=== PATIENT | female | born 1980 | race Caucasian/White ===

== ENCOUNTER 2018-08-17 07:30 | Inpatient (IN) | payer OTHER ==
[2018-08-21] MEDS ORDERED: Acetaminophen 1,000 MG in Premix Bag 1 BAG IV ONE (00:49)
[2018-08-21] MEDS ORDERED: Sodium Chloride 0.9% 2.5 ML Syringe FLUSH PRN (05:32)
[2018-08-21] MEDS ORDERED: Sodium Chloride 0.9% 10 ML SDV IV PRN (05:32)
[2018-08-21] MEDS ORDERED: Sodium Chloride 0.9% 10 ML Syringe FLUSH PRN (05:32)
[2018-08-21] MEDS ORDERED: Oxytocin/0.9 % Sodium Chloride 30 UNIT/500 ML BAG IV SCH (05:45)
[2018-08-21] MEDS ORDERED: ceFAZolin 2 GM in Premix Bag 1 BAG IV ONE (06:00)
[2018-08-21] MEDS ORDERED: Citric Acid/Sodium Citrate Solution 30 ML Cup PO ONE (06:00)
[2018-08-21] MEDS: Lactated Ringers 1,000 ML IV SCH ×2 (06:08→07:31)
[2018-08-21] MEDS ORDERED: Phenylephrine 1% 10 MG/ML SDV ONE (06:49)
[2018-08-21] MEDS ORDERED: Ondansetron 4 MG/2 ML SDV ONE (06:50)
[2018-08-21] MEDS ORDERED: Morphine PF 10 MG/10 ML SDV ONE (07:26)
[2018-08-21] MEDS ORDERED: Octyl 2-Cyanoacrylate 1 Tube ONE (07:26)
[2018-08-21] MEDS ORDERED: Oxytocin 10 Units/1 ML SDV ONE (07:27)
[2018-08-21] MEDS ORDERED: ceFAZolin/Dextrose,Iso-Osmotic 2 GM/50 ML Duplex Bag IV ONE (07:31)
--- NOTE | 2018-08-21 07:31 | PCM.PREANE ---
Preanesthetic Assessment - Anesthesia/Transfusion/Family Hx Anesthesia History: Prior Anesthesia Without Reaction (get for prior 13 years ago) Family History of Anesthesia Reaction: No Transfusion History: No Prior Transfusion(s) - Review of Systems General: No Symptoms Pulmonary: No Symptoms (nasal congestion) Cardiovascular: No Symptoms Gastrointestinal: No Symptoms Neurological: No Symptoms Other: Reports: None - Physical Assessment NPO Status Date: 08/20/18 Height: 5 ft 5 in Weight: 104.326 kg ASA Class: 2 Mental Status: Alert & Oriented x3 Airway Class: Mallampati = 2 Dentition: Reports: Normal Dentition ROM/Head Extension: Full Lungs: Clear to Auscultation, Normal Respiratory Effort Cardiovascular: Regular Rate, Regular Rhythm - Lab Values: Laboratory Last Values WBC 9.62 K/uL (4.0-11.0) 08/21/18 05:48 RBC 4.53 M/uL (4.30-5.90) 08/21/18 05:48 Hgb 13.1 g/dL (12.0-16.0) 08/21/18 05:48 Hct 38.6 % (36.0-46.0) 08/21/18 05:48 MCV 85.2 fL (80.0-98.0) 08/21/18 05:48 MCH 28.9 pg (27.0-32.0) 08/21/18 05:48 MCHC 33.9 g/dL (31.0-37.0) 08/21/18 05:48 RDW Std Deviation 44.6 fl (28.0-62.0) 08/21/18 05:48 RDW Coeff of Félix 15 % (11.0-15.0) 08/21/18 05:48 Plt Count 230 K/uL (150-400) 08/21/18 05:48 MPV 9.20 fL (7.40-12.00) 08/21/18 05:48 Nucleated RBC % 0.0 /100WBC 08/21/18 05:48 Nucleated RBCs # 0 K/uL 08/21/18 05:48 Blood Type O POSITIVE 08/21/18 05:48 Antibody Screen NEGATIVE 08/21/18 05:48 - Allergies Allergies/Adverse Reactions: Allergies Allergy/AdvReac Type Severity Reaction Status Date / Time codeine Allergy throat Verified 08/16/18 11:09 swells/hives hydrocodone Allergy throat Verified 08/16/18 11:09 swells/ hives - Blood Blood Available: No - Anesthesia Plan Pre-Op Medication Ordered: None - Acknowledgements Anesthesia Type Planned: Spinal Pt an Appropriate Candidate for the Planned Anesthesia: Yes Alternatives and Risks of Anesthesia Discussed w Pt/Guardian: Yes Pt/Guardian Understands and Agrees with Anesthesia Plan: Yes Additional Comments: PMH: repeat elective c section, 39 weeks, no gestational problems, meds-- vistaril and celexa PLAN:spinal with duramorph PreAnesthesia Questionnaire HEENT History: Reports: Other (See Below) Other HEENT History: wears glasses/contacts Cardiovascular History: Reports: None Respiratory History: Reports: None Gastrointestinal History: Reports: Other (See Below) Other Gastrointestinal History: heartburn during Genitourinary History: Reports: None PERIPATOLOGIST History: Reports: Musculoskeletal History: Reports: None Neurological History: Reports: None Psychiatric History: Reports: Anxiety, Depression Endocrine/Metabolic History: Reports: Obesity/BMI 30+ Hematologic History: Reports: None Immunologic History: Reports: None Oncologic (Cancer) History: Reports: None Dermatologic History: Reports: None - Infectious Disease History Infectious Disease History: Reports: Chicken Pox Other Infectious Disease History: chicken pox as a child - Past Surgical History Head Surgeries/Procedures: Reports: None HEENT Surgical History: Reports: None Cardiovascular Surgical History: Reports: None Respiratory Surgical History: Reports: None GI Surgical History: Reports: None Female Surgical History: Reports: Section Endocrine Surgical History: Reports: None Neurological Surgical History: Reports: None Musculoskeletal Surgical History: Reports: Carpal Tunnel Oncologic Surgical History: Reports: None Dermatological Surgical History: Reports: None - SUBSTANCE USE Smoking Status *Q: Former Smoker Tobacco Use Within Last Twelve Months: No Second Hand Smoke Exposure: No Recreational Drug Use History: No - HOME MEDS Home Medications: Home Meds Citalopram Hydrobromide [Celexa] 10 mg PO DAILY 08/16/18 [History] PNV95/Ferrous Fumarate/FA [ Vitamin Tablet] 1 tab PO DAILY 08/16/18 [ History] hydrOXYzine pamoate [Hydroxyzine Pamoate] 50 mg PO BEDTIME 08/16/18 [History] - CURRENT (IN HOUSE) MEDS Current Meds: Current Medications Lactated Ringer's (Ringers, Lactated) 1,000 mls @ 500 mls/hr IV BOLUS MIGUEL Last Admin: 08/21/18 06:08 Dose: 500 mls/hr Oxytocin/Sodium Chloride (Oxytocin 30 Unit/500 Ml-Ns) 30 unit in 500 mls @ 250 mls/hr IV TITRATE MIGUEL Sodium Chloride (Saline Flush) 10 ml FLUSH ASDIRECTED PRN PRN Reason: Keep Vein Open Sodium Chloride (Saline Flush) 2.5 ml FLUSH ASDIRECTED PRN PRN Reason: Keep Vein Open Sodium Chloride (Normal Saline) 10 ml IV ASDIRECTED PRN PRN Reason: IV Use Discontinued Medications Citric Acid/Sodium Citrate (Bicitra Solution) 30 ml PO ONETIME ONE Stop: 08/21/18 06:01 Acetaminophen 1,000 mg/ Premix 100 mls @ 400 mls/hr IV NOW ONE Stop: 08/21/18 00:51 Cefazolin Sodium/Dextrose 2 gm (/ Premix) 50 mls @ 100 mls/hr IV ONETIME ONE Stop: 08/21/18 06:29 Ondansetron HCl (Zofran) Confirm Administered Dose 4 mg .ROUTE .STK-MED ONE Stop: 08/21/18 06:51 Phenylephrine HCl (Eduardo-Synephrine) Confirm Administered Dose 10 mg .ROUTE .STK- MED ONE Stop: 08/21/18 06:50
--- NOTE | 2018-08-21 08:53 | PCM.OPNOTE ---
- General Post-Op/Procedure Note Date of Surgery/Procedure: 08/21/18 Operative Procedure(s): repeat low transverse Findings: Liveborn female 8/9 weight 3920 grams, normal pelvis Pre Op Diagnosis: 39 weeks prior , declines trial of labor. Post-Op Diagnosis: Same Anesthesia Technique: Spinal Primary Surgeon: Tania Jenkins Anesthesia Provider: Tony Barnes Manager Human Capital: Roxy Love Pathology: none Fluid Replacement, Intraop: 2,300 Output, Urine Amount: 75 EBL in mLs: 500 Complications: None Known Condition: Good
[2018-08-21] MEDS ORDERED: Lanolin 100% Cream 7 GM Tube TOP PRN (08:54)
[2018-08-21] MEDS ORDERED: diphenhydrAMINE 50 MG/ML SDV IVPUSH PRN (08:54)
[2018-08-21] MEDS ORDERED: Ondansetron 4 MG/2 ML SDV IVPUSH PRN (08:54)
[2018-08-21] MEDS ORDERED: Acetaminophen/oxyCODONE 325-5 MG Tab PO PRN (08:54)
[2018-08-21] MEDS ORDERED: Bisacodyl 10 MG Supp RECTAL PRN (08:54)
[2018-08-21] MEDS: Docusate Sodium 100 MG Cap PO SCH ×2 (09:00→20:46)
[2018-08-21] MEDS: Citalopram 20 MG Tab PO SCH (09:00)
[2018-08-21] MEDS ORDERED: Lactated Ringers 1,000 ML IV SCH (09:00)
[2018-08-21] MEDS: Ketorolac 30 MG/ML SDV IVPUSH SCH ×3 (09:16→20:46)
--- NOTE | 2018-08-21 09:43 | PCM.POSTAN ---
POST ANESTHESIA ASSESSMENT - MENTAL STATUS Mental Status: Alert, Oriented - RESPIRATORY Respiratory Status: Respiratory Rate WNL, Airway Patent, O2 Saturation Stable - CARDIOVASCULAR CV Status: Pulse Rate WNL, Blood Pressure Stable - GASTROINTESTINAL GI Status: No Symptoms - POST OP HYDRATION Hydration Status: Adequate & Stable
--- NOTE | 2018-08-21 12:22 | OR ---
SURGEON: Tania Jenkins M.D. DATE OF PROCEDURE: 08/21/2018 PREOPERATIVE DIAGNOSES: A 39-week intrauterine , prior delivery, declines vaginal trial of labor, polyhydramnios. POSTOPERATIVE DIAGNOSES: A 39-week intrauterine , prior delivery, declines vaginal trial of labor, polyhydramnios. PROCEDURE: Repeat low-transverse section. ANESTHESIA: Spinal. ESTIMATED BLOOD LOSS: 500 mL. FLUIDS: 2300 mL of crystalloid. URINE OUTPUT: 75 mL. FINDINGS: Liveborn female, score of 8 and 9, weighing 3920 g. Normal-appearing uterus, tubes, and ovaries. COMPLICATIONS: None known. DISPOSITION: Stable to recovery. BRIEF HISTORY: This is a 38-year-old female. She is G2, P 1-0-0-1. She presents at 39 weeks' gestation for repeat with risks discussed including bleeding; infection; injury to bowel, bladder, blood vessels, or other organs; risk of thromboembolic event; and risk of anesthesia. Understanding these risks, she does desire to proceed. Her care was complicated by polyhydramnios with negative evaluation. DESCRIPTION OF PROCEDURE: With the patient in left tilt position, under adequate spinal analgesia, the abdomen was prepped with chlorhexidine and draped in the usual fashion for abdominal surgery. SCDs were in place. Ray catheter had been placed. She received 2 g of Ancef IV, and after an appropriate time-out was obtained, the documentation of adequate analgesia was performed. A transverse curvilinear incision was made over the prior incision and carried through the subcutaneous tissue to the fascia, which was scored transversely in the midline. The fascial incision was extended laterally using curved Massey scissors. Fascia was elevated from the underlying rectus muscle using sharp and blunt dissection. The rectus muscles were sharply in the midline. The peritoneum was entered sharply. A finger was placed into the peritoneal cavity. There was a small amount of omental adhesion to the left of the incision site. Otherwise, no adhesion to the anterior abdominal wall. The incision was extended using sharp and blunt dissection. The Jigar O retractor was placed. The visceroperitoneum over the lower uterine segment was incised to develop an adequate bladder flap. A transverse curvilinear incision was made with a scalpel over the lower uterine segment to the amniotic membrane. The incision was extended using blunt dissection. The amniotic membranes were then ruptured. The head was delivered via the uterine incision with fundal pressure with subsequent delivery of the infant's shoulders and body without any difficulty. The infant was bulb suctioned by nose and mouth, and after the cord had ceased to pulsate, it was doubly clamped and cut. The infant was a liveborn female, score of 8 and 9, weighing 3920 g. Cord blood was collected for cord ABGs as well as routine cord blood sampling. The placenta was removed by manual extraction. The uterus was cleaned with a dry laparotomy tape. The cervix was opened with ring forceps. The uterine incision was closed with a running lock suture of 0 Polysorb followed by an imbricating layer of 0 Polysorb. Posterior cul-de-sac, pericolic gutters were cleaned with a wet laparotomy tape. Tubes and ovaries were inspected and were hemostatic. The uterine incision was inspected and was hemostatic, therefore, the Jigar O retractor was removed. A final inspection was performed and hemostasis was confirmed. The rectus muscle and peritoneum were loosely approximated in midline using a running mattress suture of 0 Polysorb. The posterior aspect of the fascia was inspected, any areas of bleeding that were noted were cauterized. The fascial incision was closed with a running suture of 0 Polysorb. Subcutaneous tissue was copiously irrigated, carefully inspected for hemostasis, any areas of bleeding that were noted were cauterized. The deep subcutaneous tissue was closed with a running suture of 3-0 plain and the skin was closed with a running subcuticular suture of 3-0 Monocryl followed by Dermabond. Final sponge, needle, and instrument counts were reported as correct. There were no known complications. The patient and infant are in recovery in good condition. FAITH / CHAITANYA /[id number]
[2018-08-22] MEDS: Ketorolac 30 MG/ML SDV IVPUSH SCH ×2 (03:05→08:56)
[2018-08-22] MEDS: Prenatal Multivitamin and Multimineral with Iron Tab PO SCH ×2 (07:21→08:55)
--- NOTE | 2018-08-22 08:43 | PCM.PNPP ---
- General Info Date of Service: 08/22/18 Functional Status: Reports: Pain Controlled - Review of Systems General: Reports: No Symptoms HEENT: Reports: No Symptoms Pulmonary: Reports: No Symptoms Cardiovascular: Reports: No Symptoms Gastrointestinal: Reports: No Symptoms Genitourinary: Reports: No Symptoms Musculoskeletal: Reports: No Symptoms Skin: Reports: No Symptoms Neurological: Reports: No Symptoms Psychiatric: Reports: No Symptoms - Patient Data Vital Signs - Most Recent: Last Vital Signs Temp 36.3 C 08/22/18 07:30 Pulse 99 08/22/18 07:30 Resp 17 08/22/18 07:30 BP 128/59 L 08/22/18 07:30 Pulse Ox 97 08/22/18 07:30 Weight - Most Recent: 104.326 kg I&O - Last 24 Hours: Intake & Output 08/21/18 08/22/18 08/22/18 22:59 06:59 14:59 Intake Total 500 900 Output Total 700 1350 Balance -200 -450 Lab Results - Last 24 Hours: Laboratory Results - last 24 hr 08/21/18 08/22/18 Range/Units 08:17 05:25 Hgb 10.6 L (12.0-16.0) g/dL Hct 32.0 L (36.0-46.0) % Cord ABG pH 7.231 (7.18-7.38) Cord ABG Base Excess -2 (-10--2) Cord VBG pH 7.264 (7.25-7.45) Cord VBG Base Excess -2 (-10--2) Med Orders - Current: Current Medications Bisacodyl (Dulcolax) 10 mg RECTAL ONETIME PRN PRN Reason: Constipation Citalopram Hydrobromide (Celexa) 10 mg PO DAILY [facility] Last Admin: 08/21/18 09:00 Dose: Not Given Diphenhydramine HCl (Benadryl) 25 mg IVPUSH Q6H PRN PRN Reason: Itching or Nausea Docusate Sodium (Colace) 100 mg PO BID [facility] Last Admin: 08/21/18 20:46 Dose: 100 mg Emollient Ointment (Lansinoh Hpa) 0 gm TOP ASDIRECTED PRN PRN Reason: Sore Nipples Lactated Ringer's (Ringers, Lactated) 1,000 mls @ 125 mls/hr IV ASDIRECTED [facility] Last Admin: 08/21/18 10:30 Dose: 125 mls/hr Ibuprofen (Motrin) 800 mg PO Q8H PRN PRN Reason: mild pain or fever Ketorolac Tromethamine (Toradol) 30 mg IVPUSH Q6H [facility] Stop: 08/22/18 09:01 Last Admin: 08/22/18 03:05 Dose: 30 mg Ondansetron HCl (Zofran) 4 mg IVPUSH Q4H PRN PRN Reason: Nausea/Vomiting Oxycodone/Acetaminophen (Percocet 325-5 Mg) 1 tab PO Q4H PRN PRN Reason: Pain (moderate 4-6) Oxycodone/Acetaminophen (Percocet 325-5 Mg) 2 tab PO Q4H PRN PRN Reason: Pain (moderate 4-6) Prenat Multivit/Throckmorton/Iron/Folic Ac ( Mtr) 1 each PO DAILY [facility] Last Admin: 08/22/18 07:21 Dose: Not Given Discontinued Medications Cefazolin Sodium/Dextrose (Ancef) Confirm Administered Dose 2 gm IV .STK-MED ONE Stop: 08/21/18 07:32 Citric Acid/Sodium Citrate (Bicitra Solution) 30 ml PO ONETIME ONE Stop: 08/21/18 06:01 Last Admin: 08/21/18 07:34 Dose: 30 ml Acetaminophen 1,000 mg/ Premix 100 mls @ 400 mls/hr IV NOW ONE Stop: 08/21/18 00:51 Last Admin: 08/22/18 07:21 Dose: Not Given Cefazolin Sodium/Dextrose 2 gm (/ Premix) 50 mls @ 100 mls/hr IV ONETIME ONE Stop: 08/21/18 06:29 Lactated Ringer's (Ringers, Lactated) 1,000 mls @ 500 mls/hr IV BOLUS [facility] Last Admin: 08/21/18 07:31 Dose: 500 mls/hr Oxytocin/Sodium Chloride (Oxytocin 30 Unit/500 Ml-Ns) 30 unit in 500 mls @ 250 mls/hr IV TITRATE [facility] Morphine Sulfate (Duramorph Pf) Confirm Administered Dose 10 mg .ROUTE .STK-MED ONE Stop: 08/21/18 07:27 Octyl Cyanoacrylate (Dermabond Advance) Confirm Administered Dose 1 applic .ROUTE .STK-MED ONE Stop: 08/21/18 07:27 Ondansetron HCl (Zofran) Confirm Administered Dose 4 mg .ROUTE .STK-MED ONE Stop: 08/21/18 06:51 Oxytocin (Pitocin) Confirm Administered Dose 20 unit .ROUTE .STK-MED ONE Stop: 08/21/18 07:28 Phenylephrine HCl (Eduardo-Synephrine) Confirm Administered Dose 10 mg .ROUTE .STK- MED ONE Stop: 08/21/18 06:50 Sodium Chloride (Saline Flush) 10 ml FLUSH ASDIRECTED PRN PRN Reason: Keep Vein Open Sodium Chloride (Saline Flush) 2.5 ml FLUSH ASDIRECTED PRN PRN Reason: Keep Vein Open Sodium Chloride (Normal Saline) 10 ml IV ASDIRECTED PRN PRN Reason: IV Use - Interaction Disposition, : [place] to Nursery Infant Feeding: Breastfed ; Nursed Well (supplementing) Support Person: Significant Other - Recovery Exam Fundal Tone: Firm Fundal Level: At Umbilicus Fundal Placement: Midline Lochia Amount: Scant Lochia Color: Rubra/Red Perineum Description: Intact, Minimal Bruising/Swelling Episiotomy/Laceration: None Bladder Status: Indwelling Catheter in Place Urinary Elimination: Indwelling Catheter - Exam General: Alert, Oriented Lungs: Normal Respiratory Effort GI/Abdominal Exam: Soft, Non-Tender, No Distention, No Abnormal Bruit, No Mass Extremities: No: No Pedal Edema (2+ bilateral) Neurological: No New Focal Deficit - Problem List & Annotations (1) delivery delivered SNOMED Code(s): 293099603 Code(s): O82 - ENCOUNTER FOR DELIVERY WITHOUT INDICATION Status: Acute Current Visit: Yes - Problem List Review Problem List Initiated/Reviewed/Updated: Yes - My Orders Last 24 Hours: My Active Orders 08/21/18 08:54 Patient Status [ADT] Routine Ambulate [RC] PER UNIT ROUTINE Antiembolic Devices [RC] PER UNIT ROUTINE May Shower [RC] ASDIRECTED RT Incentive Spirometry [RC] Q2HWA Vital Signs [RC] PER UNIT ROUTINE Acetaminophen/oxyCODONE [Percocet 325-5 MG] 1 tab PO Q4H PRN Acetaminophen/oxyCODONE [Percocet 325-5 MG] 2 tab PO Q4H PRN Bisacodyl [Dulcolax] 10 mg RECTAL ONETIME PRN Ibuprofen [Motrin] 800 mg PO Q8H PRN Lanolin [Lansinoh HPA] See Dose Instructions TOP ASDIRECTED PRN Ondansetron [Zofran] 4 mg IVPUSH Q4H PRN diphenhydrAMINE [Benadryl] 25 mg IVPUSH Q6H PRN Abdominal Binder [OM.PC] Urgent Assess Lochia [WOMSER] Per Unit Routine Assess Uterine Involution [WOMSER] Per Unit Routine Breast Pump [WOMSER] Per Unit Routine Peripheral IV Discontinue [OM.PC] Routine Sequential Compression Device [OM.PC] Per Unit Routine Resuscitation Status Routine 08/21/18 08:55 Notify Provider Intake and Out [RC] ASDIRECTED Notify Provider Vital Signs [RC] ASDIRECTED 08/21/18 09:00 Citalopram [Celexa] 10 mg PO DAILY Docusate Sodium [Colace] 100 mg PO BID Ketorolac [Toradol] 30 mg IVPUSH Q6H Lactated Ringers [Ringers, Lactated] 1,000 ml IV ASDIRECTED Vit/FA/Fe Fumarate/Se [ MTR] 1 each PO DAILY 08/21/18 Lunch Regular Diet [DIET] - Assessment Assessment:: POD#1 after primary , stable minimal lochia, pain well controlled Has not yet voided. - Plan Plan:: Continue postop care, remove dressing and shower today, start oral pain medications, anticipate home tomorrow.
[2018-08-22] MEDS: Docusate Sodium 100 MG Cap PO SCH ×2 (08:55→20:58)
[2018-08-22] MEDS: Citalopram 20 MG Tab PO SCH (08:55)
--- NOTE | 2018-08-22 14:25 | PCM48HPAN ---
Post Anesthesia Note - EVALUATION WITHIN 48HRS OF ANESTHETIC Vital Signs in Normal Range: Yes Patient Participated in Evaluation: Yes Respiratory Function Stable: Yes Airway Patent: Yes Cardiovascular Function Stable: Yes Hydration Status Stable: Yes Pain Control Satisfactory: Yes Nausea and Vomiting Control Satisfactory: Yes Mental Status Recovered: Yes Resp Rate: 17
[2018-08-22] MEDS: Acetaminophen/oxyCODONE 325-5 MG Tab PO PRN ×2 (16:09→20:58)
[2018-08-22] MEDS: Ibuprofen 800 MG Tab PO PRN (19:50)
[2018-08-23] MEDS: Acetaminophen/oxyCODONE 325-5 MG Tab PO PRN ×3 (01:04→09:43)
[2018-08-23] MEDS: Ibuprofen 800 MG Tab PO PRN (04:17)
[2018-08-23 07:47] VITALS: BP 112/60
--- NOTE | 2018-08-23 07:59 | PCM.PNPP ---
<Torie Mathur - Last Filed: 08/23/18 07:55> - General Info Date of Service: 08/23/18 Functional Status: Reports: Pain Controlled, Tolerating Diet, Ambulating, Urinating - Review of Systems General: Denies: Fever, Weakness, Fatigue Pulmonary: Denies: Shortness of Breath, Pleuritic Chest Pain, Cough Cardiovascular: Denies: Chest Pain, Palpitations, Dyspnea on Exertion Gastrointestinal: Denies: Abdominal Pain Genitourinary: Denies: Dysuria - General Info Date of Service: 08/23/18 - Patient Data Vital Signs - Most Recent: Last Vital Signs Temp 36.4 C 08/23/18 07:46 Pulse 89 08/23/18 07:46 Resp 15 08/23/18 07:46 BP 112/60 08/23/18 07:46 Pulse Ox 96 08/23/18 07:46 Weight - Most Recent: 104.326 kg Med Orders - Current: Current Medications Bisacodyl (Dulcolax) 10 mg RECTAL ONETIME PRN PRN Reason: Constipation Citalopram Hydrobromide (Celexa) 10 mg PO DAILY [facility] Last Admin: 08/22/18 08:55 Dose: Not Given Diphenhydramine HCl (Benadryl) 25 mg IVPUSH Q6H PRN PRN Reason: Itching or Nausea Docusate Sodium (Colace) 100 mg PO BID [facility] Last Admin: 08/22/18 20:58 Dose: 100 mg Emollient Ointment (Lansinoh Hpa) 0 gm TOP ASDIRECTED PRN PRN Reason: Sore Nipples Lactated Ringer's (Ringers, Lactated) 1,000 mls @ 125 mls/hr IV ASDIRECTED [facility] Last Admin: 08/21/18 10:30 Dose: 125 mls/hr Ibuprofen (Motrin) 800 mg PO Q8H PRN PRN Reason: mild pain or fever Last Admin: 08/23/18 04:17 Dose: 800 mg Ondansetron HCl (Zofran) 4 mg IVPUSH Q4H PRN PRN Reason: Nausea/Vomiting Oxycodone/Acetaminophen (Percocet 325-5 Mg) 1 tab PO Q4H PRN PRN Reason: Pain (moderate 4-6) Oxycodone/Acetaminophen (Percocet 325-5 Mg) 2 tab PO Q4H PRN PRN Reason: Pain (moderate 4-6) Last Admin: 08/23/18 05:43 Dose: 2 tab Prenat Multivit/[place]/Iron/Folic Ac ( Mtr) 1 each PO DAILY [facility] Last Admin: 08/22/18 08:55 Dose: 1 each Discontinued Medications Cefazolin Sodium/Dextrose (Ancef) Confirm Administered Dose 2 gm IV .STK-MED ONE Stop: 08/21/18 07:32 Citric Acid/Sodium Citrate (Bicitra Solution) 30 ml PO ONETIME ONE Stop: 08/21/18 06:01 Last Admin: 08/21/18 07:34 Dose: 30 ml Acetaminophen 1,000 mg/ Premix 100 mls @ 400 mls/hr IV NOW ONE Stop: 08/21/18 00:51 Last Admin: 08/22/18 07:21 Dose: Not Given Cefazolin Sodium/Dextrose 2 gm (/ Premix) 50 mls @ 100 mls/hr IV ONETIME ONE Stop: 08/21/18 06:29 Lactated Ringer's (Ringers, Lactated) 1,000 mls @ 500 mls/hr IV BOLUS [facility] Last Admin: 08/21/18 07:31 Dose: 500 mls/hr Oxytocin/Sodium Chloride (Oxytocin 30 Unit/500 Ml-Ns) 30 unit in 500 mls @ 250 mls/hr IV TITRATE [facility] Ketorolac Tromethamine (Toradol) 30 mg IVPUSH Q6H [facility] Stop: 08/22/18 09:01 Last Admin: 08/22/18 08:56 Dose: 30 mg Morphine Sulfate (Duramorph Pf) Confirm Administered Dose 10 mg .ROUTE .STK-MED ONE Stop: 08/21/18 07:27 Octyl Cyanoacrylate (Dermabond Advance) Confirm Administered Dose 1 applic .ROUTE .STK-MED ONE Stop: 08/21/18 07:27 Ondansetron HCl (Zofran) Confirm Administered Dose 4 mg .ROUTE .STK-MED ONE Stop: 08/21/18 06:51 Oxytocin (Pitocin) Confirm Administered Dose 20 unit .ROUTE .STK-MED ONE Stop: 08/21/18 07:28 Phenylephrine HCl (Eduardo-Synephrine) Confirm Administered Dose 10 mg .ROUTE .STK- MED ONE Stop: 08/21/18 06:50 Sodium Chloride (Saline Flush) 10 ml FLUSH ASDIRECTED PRN PRN Reason: Keep Vein Open Sodium Chloride (Saline Flush) 2.5 ml FLUSH ASDIRECTED PRN PRN Reason: Keep Vein Open Sodium Chloride (Normal Saline) 10 ml IV ASDIRECTED PRN PRN Reason: IV Use - Interaction Disposition, : to Nursery Infant Interaction: Holding Infant Infant Feeding: Breastfed ; Nursed Well (supplementing) Support Person: Significant Other - Recovery Exam Fundal Tone: Firm Fundal Level: At Umbilicus Fundal Placement: Midline Lochia Amount: Scant Lochia Color: Rubra/Red Perineum Description: Intact, Minimal Bruising/Swelling Episiotomy/Laceration: None Bladder Status: Voiding Urinary Elimination: Voided - Exam General: Alert, Oriented Neck: Supple Lungs: Clear to Auscultation, Normal Respiratory Effort Cardiovascular: Regular Rate, Regular Rhythm GI/Abdominal Exam: Normal Bowel Sounds, Soft, Non-Tender, No Distention Extremities: Normal Inspection, Non-Tender, Normal Capillary Refill, Pedal Edema (trace) Skin: Warm, Dry, Intact - Problem List & Annotations (1) delivery delivered SNOMED Code(s): 177194714 Code(s): O82 - ENCOUNTER FOR DELIVERY WITHOUT INDICATION Status: Acute Current Visit: Yes - Problem List Review Problem List Initiated/Reviewed/Updated: Yes - Assessment Assessment:: POD#2 after RLTCS stable minimal lochia, pain well controlled. Encouraged to breast feed. Discharge home today. - Plan Plan:: Discharge home today. Pelvic rest for 6 weeks. Rx for percocet to use as needed for pain. Instructed patient to call if she develops fever greater than 101 or bleeding through a large pad an hour. No lifting greater than 10lbs for 6 weeks. F/U with [facility] IN 2 and 6 weeks <Tania Jenkins - Last Filed: 08/23/18 08:10> - Patient Data Vital Signs - Most Recent: Last Vital Signs Temp 36.4 C 08/23/18 07:46 Pulse 89 08/23/18 07:46 Resp 15 08/23/18 07:46 BP 112/60 08/23/18 07:46 Pulse Ox 96 08/23/18 07:46 Med Orders - Current: Current Medications Bisacodyl (Dulcolax) 10 mg RECTAL ONETIME PRN PRN Reason: Constipation Citalopram Hydrobromide (Celexa) 10 mg PO DAILY [facility] Last Admin: 08/22/18 08:55 Dose: Not Given Diphenhydramine HCl (Benadryl) 25 mg IVPUSH Q6H PRN PRN Reason: Itching or Nausea Docusate Sodium (Colace) 100 mg PO BID [facility] Last Admin: 08/22/18 20:58 Dose: 100 mg Emollient Ointment (Lansinoh Hpa) 0 gm TOP ASDIRECTED PRN PRN Reason: Sore Nipples Lactated Ringer's (Ringers, Lactated) 1,000 mls @ 125 mls/hr IV ASDIRECTED [facility] Last Admin: 08/21/18 10:30 Dose: 125 mls/hr Ibuprofen (Motrin) 800 mg PO Q8H PRN PRN Reason: mild pain or fever Last Admin: 08/23/18 04:17 Dose: 800 mg Ondansetron HCl (Zofran) 4 mg IVPUSH Q4H PRN PRN Reason: Nausea/Vomiting Oxycodone/Acetaminophen (Percocet 325-5 Mg) 1 tab PO Q4H PRN PRN Reason: Pain (moderate 4-6) Oxycodone/Acetaminophen (Percocet 325-5 Mg) 2 tab PO Q4H PRN PRN Reason: Pain (moderate 4-6) Last Admin: 08/23/18 05:43 Dose: 2 tab Prenat Multivit/[place]/Iron/Folic Ac ( Mtr) 1 each PO DAILY [facility] Last Admin: 08/22/18 08:55 Dose: 1 each Discontinued Medications Cefazolin Sodium/Dextrose (Ancef) Confirm Administered Dose 2 gm IV .STK-MED ONE Stop: 08/21/18 07:32 Citric Acid/Sodium Citrate (Bicitra Solution) 30 ml PO ONETIME ONE Stop: 08/21/18 06:01 Last Admin: 08/21/18 07:34 Dose: 30 ml Acetaminophen 1,000 mg/ Premix 100 mls @ 400 mls/hr IV NOW ONE Stop: 08/21/18 00:51 Last Admin: 08/22/18 07:21 Dose: Not Given Cefazolin Sodium/Dextrose 2 gm (/ Premix) 50 mls @ 100 mls/hr IV ONETIME ONE Stop: 08/21/18 06:29 Lactated Ringer's (Ringers, Lactated) 1,000 mls @ 500 mls/hr IV BOLUS [facility] Last Admin: 08/21/18 07:31 Dose: 500 mls/hr Oxytocin/Sodium Chloride (Oxytocin 30 Unit/500 Ml-Ns) 30 unit in 500 mls @ 250 mls/hr IV TITRATE [facility] Ketorolac Tromethamine (Toradol) 30 mg IVPUSH Q6H [facility] Stop: 08/22/18 09:01 Last Admin: 08/22/18 08:56 Dose: 30 mg Morphine Sulfate (Duramorph Pf) Confirm Administered Dose 10 mg .ROUTE .STK-MED ONE Stop: 08/21/18 07:27 Octyl Cyanoacrylate (Dermabond Advance) Confirm Administered Dose 1 applic .ROUTE .STK-MED ONE Stop: 08/21/18 07:27 Ondansetron HCl (Zofran) Confirm Administered Dose 4 mg .ROUTE .STK-MED ONE Stop: 08/21/18 06:51 Oxytocin (Pitocin) Confirm Administered Dose 20 unit .ROUTE .STK-MED ONE Stop: 08/21/18 07:28 Phenylephrine HCl (Eduardo-Synephrine) Confirm Administered Dose 10 mg .ROUTE .STK- MED ONE Stop: 08/21/18 06:50 Sodium Chloride (Saline Flush) 10 ml FLUSH ASDIRECTED PRN PRN Reason: Keep Vein Open Sodium Chloride (Saline Flush) 2.5 ml FLUSH ASDIRECTED PRN PRN Reason: Keep Vein Open Sodium Chloride (Normal Saline) 10 ml IV ASDIRECTED PRN PRN Reason: IV Use - Problem List & Annotations (1) delivery delivered SNOMED Code(s): 145341483 Code(s): O82 - ENCOUNTER FOR DELIVERY WITHOUT INDICATION Status: Acute Current Visit: Yes - Problem List Review Problem List Initiated/Reviewed/Updated: Yes - Plan Plan:: Patient seen and examined and I agree with above.
== END 2018-08-23 09:40 | disposition home or self-care (01) | DRG 788 ==
LOC: MW.OB 08-21 05:09
PROVIDERS: ADMIT Obstetrics & Gynecology; ATTEND Obstetrics & Gynecology
PROC: 10D00Z1 Extraction of Products of Conception, Low, Open Approach (ICD-10-PCS; principal; 2018-08-21)
PROC: 6A550ZT Pheresis of Cord Blood Stem Cells, Single (ICD-10-PCS; principal; 2018-08-21)
DX: O34.211 Maternal care for low transverse scar from previous cesarean delivery (principal); N85.8 Other specified noninflammatory disorders of uterus; Z3A.39 39 weeks gestation of pregnancy; Z37.0 Single live birth; O40.3XX0 Polyhydramnios, third trimester, not applicable or unspecified; O99.344 Other mental disorders complicating childbirth; O99.214 Obesity complicating childbirth; E66.9 Obesity, unspecified; F41.9 Anxiety disorder, unspecified; F32.9 Major depressive disorder, single episode, unspecified; Z79.899 Other long term (current) drug therapy; Z88.5 Allergy status to narcotic agent
CPT/HCPCS: 01961; 36415; 59025; 82803; 85014; 85018; 85027; 86850; 86900; 86901; A9270-GY; J0131; J0690; J1885; J2270; J2370; J2405; J2590; J7120